=== PATIENT | female | born 1990 | race Caucasian/White ===

== ENCOUNTER 2024-04-12 14:37 | Emergency (ER) | payer SELFPAY ==
[~2024-04-12] VITALS: Ht 157.5 cm; Wt 52.2 kg
[~2024-04-12 14:37] MED LIST: CLIN150 PO
== END 2024-04-12 15:25 | disposition home or self-care (01) ==
LOC: ER 14:37
DX: R07.89 Other chest pain (principal); Z88.1 Allergy status to other antibiotic agents
CPT/HCPCS: 71046; 99284-25

== ENCOUNTER 2024-08-23 07:21 | Emergency (ER) | payer SELFPAY ==
[~2024-08-23] VITALS: Ht 157.5 cm; Wt 56.7 kg
[2024-08-23] MEDS ORDERED: Clotrimazole 1% Cream 15 GM Tube TOP ONE (08:00)
[2024-08-23] MEDS ORDERED: Mupirocin 2% Ointment 22 GM TOP ONE (08:00)
[2024-08-23] MEDS ORDERED: Penicillin G Benzathine 1.2 MMU / 2 ML SYR IM ONE (08:30)
== END 2024-08-23 09:00 | disposition home or self-care (01) ==
LOC: ER 07:21
DX: J02.0 Streptococcal pharyngitis (principal); L01.03 Bullous impetigo; B35.4 Tinea corporis; Z79.2 Long term (current) use of antibiotics; Z88.1 Allergy status to other antibiotic agents
CPT/HCPCS: 87430; 96372; 99283-25; A9270; J0561

== ENCOUNTER 2024-08-27 23:32 | Emergency (ER) | payer SELFPAY ==
[~2024-08-27] VITALS: Ht 157.5 cm; Wt 56.7 kg
[2024-08-27] MEDS ORDERED: Diphth,Pertuss(Acell),Tet Vac 0.5 ML VIAL IM ONE (23:45)
[2024-08-28] MEDS ORDERED: OxyCODONE HCL 5 MG TAB PO ONE (00:35)
[2024-08-28] MEDS ORDERED: Amoxicillin/Clavulanate K 875 MG Tab PO ONE (01:15)
[2024-08-28] MEDS ORDERED: AMOCLA875 PO (03:34)
== END 2024-08-28 04:23 | disposition home or self-care (01) ==
LOC: ER 23:32
DX: S81.032A Puncture wound without foreign body, left knee, initial encounter (principal); Z88.1 Allergy status to other antibiotic agents; W17.2XXA Fall into hole, initial encounter
CPT/HCPCS: 73562-LT; 73610; 73700; 90471; 90715; 99283-25; A9270

== ENCOUNTER 2024-09-07 14:30 | Emergency (ER) | payer SELFPAY ==
[~2024-09-07] VITALS: Ht 157.5 cm; Wt 56.7 kg
[~2024-09-07 14:30] MED LIST changes: +AMOCLA875 PO
== END 2024-09-07 16:01 | disposition home or self-care (01) ==
LOC: ER 14:30
DX: S50.11XA Contusion of right forearm, initial encounter (principal); W25.XXXA Contact with sharp glass, initial encounter; Z88.1 Allergy status to other antibiotic agents
CPT/HCPCS: 73090; 99283-25

== ENCOUNTER 2025-04-30 14:58 | Emergency (ER) | payer OTHER ==
[~2025-04-30] VITALS: Ht 157.5 cm; Wt 56.7 kg
[2025-04-30 15:41] LABS: BASOPHILS ABSOLUTE AUTO 0.05 K/mm3 (0.00-0.23); BASOPHILS PERCENT AUTO 1 % (0-2); EOSINOPHILS ABSOLUTE AUTO 0.08 K/mm3 (0.00-0.68); EOSINOPHILS PERCENT AUTO 1 % (0-6); Hematocrit 43.7 % (33.0-51.0); Hemoglobin 14.4 g/dL (11.5-16.0); IMMATURE GRAN ABSOLUTE AUTO 0.04 K/mm3 (0.00-0.10); IMMATURE GRAN PERCENT AUTO 1 % (0-1); LYMPHOCYTES ABSOLUTE AUTO 1.80 K/mm3 (0.84-5.20); LYMPHOCYTES PERCENT AUTO 24 % (21-46); MONOCYTES ABSOLUTE AUTO 0.57 K/mm3 (0.16-1.47); MONOCYTES PERCENT AUTO 8 % (4-13); Mean Corpuscular HGB Conc 33.0 g/dL (31.5-36.5); Mean Corpuscular Volume 86 fL (80-100); NEUTROPHILS ABSOLUTE AUTO 4.99 K/mm3 (1.96-9.15); NEUTROPHILS PERCENT AUTO 66 % (41-73); NRBC ABSOLUTE 0.00 K/mm3 (0.00-0.02); NRBC Auto 0.0 /100 WBC (0.0-0.2); Platelet Count 361 K/mm3 (150-400); RDW Coefficient Variation 14.9 % (11.7-14.2); RDW Standard Deviation 47.0 fL (35.1-46.3)
[2025-04-30 15:51] LABS: Source, Urine Clean Catch
[2025-04-30 15:59] LABS: Bilirubin, Urine Neg (Neg); Color, Urine Yellow (P-Yellow); Glucose Qualitative, Urine Neg (Neg); Ketones, Urine Neg (Neg); Leukocyte Esterase, Urine 1+ (Neg); Protein, Urine 2+ (Neg); Specific Gravity, Urine 1.025 (1.003-1.022); Urobilinogen, Urine NORM (Normal)
[2025-04-30 16:04] LABS: Alanine Aminotransfer (ALT/SGP 45.0 U/L (12-78); Albumin, Blood 4.3 g/dL (3.4-5.0); Albumin/Globulin Ratio 1.1 (0.8-1.8); Anion Gap 12.0 mmol/L (3-11); Aspartate Aminotrans (AST/SGOT 38.0 U/L (12-37); Bilirubin, Total 0.5 mg/dL (0.1-1.0); Blood Urea Nitrogen 20.0 mg/dL (8-24); CO2, Blood 24.0 mmol/L (21-32); Calcium, Blood 9.9 mg/dL (8.5-10.1); Chloride, Blood 104.0 mmol/L (98-108); Creatinine, Blood 0.82 mg/dL (0.40-1.00); Globulin, Blood 3.9 g/dL (2.2-4.0); Glucose, Blood 83.0 mg/dL (70-99); Potassium, Blood 3.5 mmol/L (3.5-5.5); Sodium, Blood 136.0 mmol/L (136-145); Total Protein, Blood 8.2 g/dL (6.4-8.2)
[2025-04-30 16:22] LABS: Red Blood Cells, Urine 0-2 /hpf (0-2)
[2025-04-30 17:17] LABS: Candida Group, PCR NOT DETECTED (NOT DETECT)
[2025-04-30 17:48] LABS: Chlamydia Trachomatis Vaginal NOT DETECTED (NOT DETECT); Neisseria Gonorrhoea Vaginal NOT DETECTED (NOT DETECT)
[2025-04-30 19:46] LABS: Bacterial Vaginosis PCR Positive (NEGATIVE); Candida glabrata-krusei, PCR DETECTED (NOT DETECT)
[2025-04-30] MEDS ORDERED: CefTRIAXone 1000 MG Vial IM ONE (21:10)
[2025-04-30] MEDS ORDERED: DOXY100 PO (21:14)
[2025-04-30] MEDS ORDERED: METR500 PO (21:14)
[2025-04-30] MEDS ORDERED: VALA500 PO (21:14)
[2025-05-03 09:58] LABS: HIV 1,2 COMBO ANTIGEN/ANTIBODY Negative (Negative)
== END 2025-04-30 23:32 | disposition home or self-care (01) ==
LOC: ER 14:58
PROVIDERS: Student in an Organized Health Care Education/Training Program
DX: B00.1 Herpesviral vesicular dermatitis (principal); Z20.2 Contact with and (suspected) exposure to infections with a predominantly sexual mode of transmission; Z88.1 Allergy status to other antibiotic agents; Z79.899 Other long term (current) drug therapy
CPT/HCPCS: 80053; 81001; 81025; 81515; 85025; 87086; 87389; 87491; 87591; 99283; A9270